=== PATIENT | female | born 1965 | race Hispanic/Latino ===

== ENCOUNTER 2020-07-10 14:19 | Inpatient (IN) | payer BC, OTHER ==
[~2020-07-10] VITALS: Ht 152.4 cm; Wt 72.6 kg
[2020-07-10 21:34] LABS: BASOPHILS % 0.2 % (0.0-1.0); EOSINOPHILS # (AUTO) 0.2 (0.0-0.4); EOSINOPHILS % 3.3 % (0.0-6.0); HEMATOCRIT 38.7 % (34.2-44.1); HEMOGLOBIN 11.6 g/dL (12.0-16.0); LYMPHOCYTES # (AUTO) 1.4 (1.0-3.2); LYMPHOCYTES % 24.8 % (18.0-39.1); MEAN CORPUSCULAR HEMOGLOBIN 24.1 pg (28-32); MEAN CORPUSCULAR VOLUME 80.5 fL (81-99); MONOCYTES # (AUTO) 0.5 (0.2-0.8); MONOCYTES % 8.1 % (4.4-11.3); NEUTROPHILS # (AUTO) 3.6 (2.1-6.9); NEUTROPHILS % 62.4 % (38.7-80.0); PLATELET COUNT 393 x10e3/uL (140-360); RED BLOOD COUNT 4.81 x10e6/uL (3.6-5.1); RED CELL DISTRIBUTION WIDTH 15.1 % (11.7-14.4)
[2020-07-10 21:42] LABS: INR 0.97; PROTHROMBIN TIME 13.5 seconds (11.9-14.5)
[2020-07-10 21:43] LABS: PARTIAL THROMBOPLASTIN TIME 32.5 seconds (23.8-35.5)
[2020-07-10 21:58] LABS: CREATINE KINASE MB 0.3 ng/mL (0-5.0)
[2020-07-10 22:00] LABS: ALBUMIN 2.8 g/dL (3.5-5.0); ALBUMIN/GLOBULIN RATIO 0.5 (0.8-2.0); ANION GAP 18.9 mmol/L (8-16); CALCIUM 9.5 mg/dL (8.4-10.2); CREATININE, SERUM 1.5 mg/dL (0.57-1.11); POTASSIUM 3.9 mmol/L (3.5-5.1)
[2020-07-10] MEDS ORDERED: DEXTROSE 50% SYRINGE 50 ML IV PRN (23:30)
[2020-07-10] MEDS ORDERED: ACETAMINOPHEN 325 MG TAB PO PRN (23:30)
[2020-07-10] MEDS ORDERED: AZITHROMYCIN 500MG/NS 250 ML 250 ML IV SCH (23:49)
[2020-07-10] MEDS ORDERED: CEFTRIAXONE SOD 2 GM/NS 100 ML 100 ML IV SCH (23:50)
[2020-07-10] MEDS ORDERED: DEXAMETHASONE SOD PHOS 10 MG/1 ML VIAL IV SCH (23:51)
[2020-07-10] MEDS ORDERED: CEFTRIAXONE SOD 2 GM in SODIUM CHLORIDE 0.9% 100 ML IV SCH (23:53)
[2020-07-11] MEDS ORDERED: BENZONATATE 100 MG CAP PO PRN (03:45)
[2020-07-11 05:12] LABS: BASOPHILS % 0.4 % (0.0-1.0); EOSINOPHILS # (AUTO) 0.2 (0.0-0.4); EOSINOPHILS % 3.2 % (0.0-6.0); HEMATOCRIT 36.1 % (34.2-44.1); HEMOGLOBIN 11.2 g/dL (12.0-16.0); LYMPHOCYTES # (AUTO) 1.1 (1.0-3.2); MEAN CORPUSCULAR HEMOGLOBIN 24.7 pg (28-32); MEAN CORPUSCULAR VOLUME 79.7 fL (81-99); MONOCYTES # (AUTO) 0.4 (0.2-0.8); MONOCYTES % 6.1 % (4.4-11.3); NEUTROPHILS # (AUTO) 5.4 (2.1-6.9); NEUTROPHILS % 74.1 % (38.7-80.0); PLATELET COUNT 511 x10e3/uL (140-360); RED BLOOD COUNT 4.53 x10e6/uL (3.6-5.1); RED CELL DISTRIBUTION WIDTH 15.1 % (11.7-14.4)
[2020-07-11 05:40] LABS: ALBUMIN 2.9 g/dL (3.5-5.0); ALBUMIN/GLOBULIN RATIO 0.6 (0.8-2.0); ANION GAP 17.9 mmol/L (8-16); CALCIUM 9.6 mg/dL (8.4-10.2); CREATININE, SERUM 1.36 mg/dL (0.57-1.11); POTASSIUM 3.9 mmol/L (3.5-5.1)
[2020-07-11] MEDS: ENOXAPARIN SOD INJ 40 MG/0.4 ML SYR SC SCH ×2 (08:45→17:00)
[2020-07-11] MEDS: ZINC SULFATE 220 MG CAP PO SCH (08:45)
[2020-07-11] MEDS: ASCORBIC ACID 500 MG TAB PO SCH ×2 (08:45→17:15)
[2020-07-11] MEDS: INSULIN REGULAR, HUMAN 100 UNIT/1 ML 3ML VIAL SQ SCH ×3 (08:49→21:00)
[2020-07-11] MEDS: INSULIN REGULAR, HUMAN 100 UNIT/1 ML 3ML VIAL SQ PRN (12:45)
[2020-07-11] MEDS ORDERED: ALBUTEROL SULFATE HFA 8GM INHALATION AEROSOL INH PRN (16:30)
[2020-07-11] MEDS: BUDESONIDE/FORMOTEROL 160/4.5MCG INHALER INH SCH (19:00)
[2020-07-11 20:00] VITALS: BP 149/71
[2020-07-11 20:30] VITALS: BP 149/71
[2020-07-11] MEDS ORDERED: CHLORTHALIDONE50 MG (22:26)
[2020-07-11] MEDS ORDERED: GLIPIZIDE10 MG PO (22:33)
[2020-07-11] MEDS ORDERED: NEURONTIN300 MG PO (22:33)
[2020-07-11] MEDS ORDERED: METOPROLOL SUCC50 MG PO (22:33)
[2020-07-11] MEDS ORDERED: FAMOTIDINE20 MG PO (22:33)
[2020-07-11] MEDS ORDERED: LISINOPRIL10 MG PO (22:33)
[2020-07-11] MEDS ORDERED: GLUCOPHAGE500 MG PO (22:33)
[2020-07-11] MEDS ORDERED: MELATONIN5 M4 PO (22:33)
[2020-07-11] MEDS ORDERED: JANUVIA50 MG PO (22:33)
[2020-07-12] VITALS (10 sets, daily range): BP systolic 132–160; BP diastolic 65–83
[2020-07-12] MEDS ORDERED: CEFTRIAXONE SOD 1 GM VIAL ONE ×2 (04:39→04:42)
[2020-07-12] MEDS ORDERED: SODIUM CHLORIDE 0.9% 50ML 100 ML ONE (04:42)
[2020-07-12] MEDS: CEFTRIAXONE SOD 2 GM in SODIUM CHLORIDE 0.9% 100 ML IV SCH (04:44)
[2020-07-12] MEDS: DEXAMETHASONE SOD PHOS 10 MG/1 ML VIAL IV SCH (05:41)
[2020-07-12] MEDS ORDERED: AZITHROMYCIN 500MG/NS 250 ML 250 ML IV SCH (06:00)
[2020-07-12] MEDS: ZINC SULFATE 220 MG CAP PO SCH (08:49)
[2020-07-12] MEDS: AZITHROMYCIN 500MG/NS 250 ML 250 ML IV SCH (08:49)
[2020-07-12] MEDS: ASCORBIC ACID 500 MG TAB PO SCH ×2 (08:49→16:54)
[2020-07-12] MEDS: BUDESONIDE/FORMOTEROL 160/4.5MCG INHALER INH SCH ×2 (08:55→19:00)
[2020-07-12] MEDS: ENOXAPARIN SOD INJ 40 MG/0.4 ML SYR SC SCH ×2 (08:55→16:54)
[2020-07-12] MEDS ORDERED: CEFTRIAXONE SOD 2 GM/NS 100 ML 100 ML IV SCH (09:00)
[2020-07-12] MEDS: INSULIN REGULAR, HUMAN 100 UNIT/1 ML 3ML VIAL SQ SCH ×4 (09:12→21:00)
[2020-07-12 10:19] LABS: BASOPHILS % 0.2 % (0.0-1.0); HEMATOCRIT 35.5 % (34.2-44.1); HEMOGLOBIN 10.9 g/dL (12.0-16.0); LYMPHOCYTES # (AUTO) 0.9 (1.0-3.2); LYMPHOCYTES % 15.9 % (18.0-39.1); MEAN CORPUSCULAR HEMOGLOBIN 24.3 pg (28-32); MEAN CORPUSCULAR HGB CONC 30.7 g/dL (31-35); MEAN CORPUSCULAR VOLUME 79.1 fL (81-99); MONOCYTES # (AUTO) 0.3 (0.2-0.8); MONOCYTES % 4.7 % (4.4-11.3); NEUTROPHILS # (AUTO) 4.3 (2.1-6.9); NEUTROPHILS % 76.9 % (38.7-80.0); PLATELET COUNT 584 x10e3/uL (140-360); RED BLOOD COUNT 4.49 x10e6/uL (3.6-5.1); RED CELL DISTRIBUTION WIDTH 14.9 % (11.7-14.4)
[2020-07-12 10:40] LABS: ALBUMIN 2.8 g/dL (3.5-5.0); ALBUMIN/GLOBULIN RATIO 0.5 (0.8-2.0); ANION GAP 16.6 mmol/L (8-16); CALCIUM 9.9 mg/dL (8.4-10.2); CREATININE, SERUM 1.22 mg/dL (0.57-1.11); POTASSIUM 4.6 mmol/L (3.5-5.1)
[2020-07-12] MEDS ORDERED: SODIUM CHLORIDE 0.9% 250ML 250 ML ONE (12:35)
[2020-07-12] MEDS: INSULIN REGULAR, HUMAN 100 UNIT/1 ML 3ML VIAL SQ PRN ×3 (13:13→22:00)
[2020-07-12] MEDS ORDERED: INSULIN GLARGINE 100 UNITS/ML VIAL SQ SCH (21:00)
[2020-07-13] VITALS (7 sets, daily range): BP systolic 133–168; BP diastolic 70–96
[2020-07-13] MEDS: DEXAMETHASONE SOD PHOS 10 MG/1 ML VIAL IV SCH (04:46)
[2020-07-13] MEDS: CEFTRIAXONE SOD 2 GM in SODIUM CHLORIDE 0.9% 100 ML IV SCH (04:46)
[2020-07-13] MEDS: AZITHROMYCIN 500MG/NS 250 ML 250 ML IV SCH (08:33)
[2020-07-13] MEDS: BUDESONIDE/FORMOTEROL 160/4.5MCG INHALER INH SCH ×2 (08:33→19:56)
[2020-07-13] MEDS: ZINC SULFATE 220 MG CAP PO SCH (08:33)
[2020-07-13] MEDS: ENOXAPARIN SOD INJ 40 MG/0.4 ML SYR SC SCH ×2 (08:33→16:24)
[2020-07-13] MEDS: ASCORBIC ACID 500 MG TAB PO SCH ×2 (08:33→16:24)
[2020-07-13] MEDS: INSULIN REGULAR, HUMAN 100 UNIT/1 ML 3ML VIAL SQ SCH ×4 (08:36→21:00)
[2020-07-13 10:04] LABS: BASOPHILS % 0.3 % (0.0-1.0); EOSINOPHILS % 0.1 % (0.0-6.0); HEMATOCRIT 38.2 % (34.2-44.1); HEMOGLOBIN 11.8 g/dL (12.0-16.0); LYMPHOCYTES # (AUTO) 1.1 (1.0-3.2); LYMPHOCYTES % 16.4 % (18.0-39.1); MEAN CORPUSCULAR HEMOGLOBIN 24.9 pg (28-32); MEAN CORPUSCULAR HGB CONC 30.9 g/dL (31-35); MEAN CORPUSCULAR VOLUME 80.8 fL (81-99); MONOCYTES # (AUTO) 0.3 (0.2-0.8); MONOCYTES % 3.7 % (4.4-11.3); NEUTROPHILS # (AUTO) 5.2 (2.1-6.9); NEUTROPHILS % 76.4 % (38.7-80.0); PLATELET COUNT 569 x10e3/uL (140-360); RED BLOOD COUNT 4.73 x10e6/uL (3.6-5.1); RED CELL DISTRIBUTION WIDTH 14.6 % (11.7-14.4)
[2020-07-13 10:08] LABS: ALBUMIN 2.9 g/dL (3.5-5.0); ALBUMIN/GLOBULIN RATIO 0.6 (0.8-2.0); ANION GAP 16.6 mmol/L (8-16); CALCIUM 9.7 mg/dL (8.4-10.2); POTASSIUM 4.6 mmol/L (3.5-5.1)
[2020-07-13] MEDS: SODIUM CHLORIDE 0.9% 1000ML 1,000 ML IV SCH ×3 (12:43→23:54)
[2020-07-13] MEDS ORDERED: ENOXAPARIN SOD INJ 40 MG/0.4 ML SYR SC ONE (16:07)
[2020-07-13] MEDS ORDERED: ASCORBIC ACID 500 MG TAB ONE (16:08)
[2020-07-13] MEDS: INSULIN REGULAR, HUMAN 100 UNIT/1 ML 3ML VIAL SQ PRN ×2 (18:34→21:20)
[2020-07-13] MEDS ORDERED: INSULIN GLARGINE 100 UNITS/ML VIAL SQ SCH (21:00)
[2020-07-14] VITALS (8 sets, daily range): BP systolic 138–152; BP diastolic 68–88
[2020-07-14] MEDS: CEFTRIAXONE SOD 2 GM in SODIUM CHLORIDE 0.9% 100 ML IV SCH (05:13)
[2020-07-14] MEDS: DEXAMETHASONE SOD PHOS 10 MG/1 ML VIAL IV SCH (05:13)
[2020-07-14 06:03] LABS: BASOPHILS % 0.1 % (0.0-1.0); EOSINOPHILS # (AUTO) 0.1 (0.0-0.4); EOSINOPHILS % 0.8 % (0.0-6.0); HEMATOCRIT 34.2 % (34.2-44.1); HEMOGLOBIN 10.6 g/dL (12.0-16.0); LYMPHOCYTES # (AUTO) 2.5 (1.0-3.2); LYMPHOCYTES % 35.4 % (18.0-39.1); MEAN CORPUSCULAR HEMOGLOBIN 24.6 pg (28-32); MEAN CORPUSCULAR VOLUME 79.4 fL (81-99); MONOCYTES # (AUTO) 0.6 (0.2-0.8); MONOCYTES % 8.1 % (4.4-11.3); NEUTROPHILS # (AUTO) 3.8 (2.1-6.9); NEUTROPHILS % 53.1 % (38.7-80.0); PLATELET COUNT 643 x10e3/uL (140-360); RED BLOOD COUNT 4.31 x10e6/uL (3.6-5.1); RED CELL DISTRIBUTION WIDTH 14.5 % (11.7-14.4)
[2020-07-14 06:28] LABS: ANION GAP 13.3 mmol/L (8-16); BLOOD UREA NITROGEN 31 mg/dL (7-26); BUN/CREATININE RATIO 34 (6-25); CARBON DIOXIDE 26 mmol/L (22-29); CHLORIDE 104 mmol/L (98-107); CREATININE, SERUM 0.91 mg/dL (0.57-1.11); EST GLOMERULAR FILTRATION RATE > 60 ML/MIN (60-); GLUCOSE 185 mg/dL (74-118); POTASSIUM 3.3 mmol/L (3.5-5.1); SODIUM 140 mmol/L (136-145)
[2020-07-14] MEDS: BUDESONIDE/FORMOTEROL 160/4.5MCG INHALER INH SCH ×2 (07:00→20:02)
[2020-07-14] MEDS: INSULIN REGULAR, HUMAN 100 UNIT/1 ML 3ML VIAL SQ SCH ×4 (07:30→20:59)
[2020-07-14] MEDS: ASCORBIC ACID 500 MG TAB PO SCH ×2 (09:14→17:15)
[2020-07-14] MEDS: ENOXAPARIN SOD INJ 40 MG/0.4 ML SYR SC SCH ×2 (09:14→17:15)
[2020-07-14] MEDS: ZINC SULFATE 220 MG CAP PO SCH (09:14)
[2020-07-14] MEDS: AZITHROMYCIN 500MG/NS 250 ML 250 ML IV SCH (09:14)
[2020-07-14] MEDS ORDERED: POTASSIUM CHLORIDE 10MEQ EA PO NR (10:30)
[2020-07-14] MEDS ORDERED: POTASSIUM CHLORIDE 20 MEQ TAB CR PO NR (10:45)
[2020-07-14] MEDS: SODIUM CHLORIDE 0.9% 1000ML 1,000 ML IV SCH (16:00)
[2020-07-14] MEDS ORDERED: INSULIN GLARGINE 100 UNITS/ML VIAL SQ SCH (21:00)
[2020-07-14] MEDS: INSULIN REGULAR, HUMAN 100 UNIT/1 ML 3ML VIAL SQ PRN (21:05)
[2020-07-15] VITALS: BP 129/81
[2020-07-15] MEDS: SODIUM CHLORIDE 0.9% 1000ML 1,000 ML IV SCH ×2 (02:00→12:00)
[2020-07-15 04:00] VITALS: BP 128/71
[2020-07-15 05:03] LABS: BASOPHILS % 0.3 % (0.0-1.0); EOSINOPHILS # (AUTO) 0.1 (0.0-0.4); EOSINOPHILS % 1.4 % (0.0-6.0); HEMATOCRIT 34.6 % (34.2-44.1); HEMOGLOBIN 10.7 g/dL (12.0-16.0); LYMPHOCYTES # (AUTO) 3.2 (1.0-3.2); MEAN CORPUSCULAR HEMOGLOBIN 24.9 pg (28-32); MEAN CORPUSCULAR HGB CONC 30.9 g/dL (31-35); MEAN CORPUSCULAR VOLUME 80.7 fL (81-99); MONOCYTES # (AUTO) 0.6 (0.2-0.8); MONOCYTES % 7.8 % (4.4-11.3); NEUTROPHILS # (AUTO) 3.5 (2.1-6.9); NEUTROPHILS % 45.4 % (38.7-80.0); PLATELET COUNT 584 x10e3/uL (140-360); RED BLOOD COUNT 4.29 x10e6/uL (3.6-5.1); RED CELL DISTRIBUTION WIDTH 14.6 % (11.7-14.4)
[2020-07-15 05:27] LABS: ALANINE AMINOTRANSFERASE 25 IU/L (0-55); ALBUMIN 2.8 g/dL (3.5-5.0); ALBUMIN/GLOBULIN RATIO 0.7 (0.8-2.0); ALKALINE PHOSPHATASE 106 IU/L (40-150); ANION GAP 14.4 mmol/L (8-16); BLOOD UREA NITROGEN 25 mg/dL (7-26); BUN/CREATININE RATIO 31 (6-25); CALCIUM 9.1 mg/dL (8.4-10.2); CARBON DIOXIDE 26 mmol/L (22-29); CHLORIDE 103 mmol/L (98-107); CREATININE, SERUM 0.81 mg/dL (0.57-1.11); EST GLOMERULAR FILTRATION RATE > 60 ML/MIN (60-); GLUCOSE 128 mg/dL (74-118); POTASSIUM 3.4 mmol/L (3.5-5.1); SODIUM 140 mmol/L (136-145)
[2020-07-15] MEDS: CEFTRIAXONE SOD 2 GM in SODIUM CHLORIDE 0.9% 100 ML IV SCH (05:37)
[2020-07-15] MEDS: DEXAMETHASONE SOD PHOS 10 MG/1 ML VIAL IV SCH (05:37)
[2020-07-15] MEDS ORDERED: ASCORBIC ACID 500 MG TAB ONE (07:38)
[2020-07-15] MEDS ORDERED: AZITHROMYCIN 500MG/NS 250 ML 250 ML ONE (07:39)
[2020-07-15] MEDS ORDERED: POTASSIUM CHLORIDE 10MEQ EA PO ONE (08:30)
[2020-07-15] MEDS: ZINC SULFATE 220 MG CAP PO SCH (09:04)
[2020-07-15] MEDS: ASCORBIC ACID 500 MG TAB PO SCH (09:04)
[2020-07-15] MEDS: AZITHROMYCIN 500MG/NS 250 ML 250 ML IV SCH (09:04)
[2020-07-15] MEDS: ENOXAPARIN SOD INJ 40 MG/0.4 ML SYR SC SCH (09:04)
[2020-07-15] MEDS: INSULIN REGULAR, HUMAN 100 UNIT/1 ML 3ML VIAL SQ SCH ×2 (09:05→12:00)
[2020-07-15 09:15] VITALS: BP 128/71
[2020-07-15 09:26] VITALS: BP 143/77
[2020-07-15] MEDS: BUDESONIDE/FORMOTEROL 160/4.5MCG INHALER INH SCH (10:05)
[2020-07-15 11:57] VITALS: BP 131/78
== END 2020-07-15 17:33 | disposition home or self-care (01) | DRG 177 ==
LOC: ER 17:44 → ERHOLD 23:32 → IMCU 07-11 19:17
PROVIDERS: ADMIT Internal Medicine; ATTEND Internal Medicine
PROC: 3E0333Z Introduction of Anti-inflammatory into Peripheral Vein, Percutaneous Approach (ICD-10-PCS; principal; 2020-07-10)
DX: U07.1 COVID-19 (principal); J12.82 Pneumonia due to coronavirus disease 2019; J96.01 Acute respiratory failure with hypoxia; N17.9 Acute kidney failure, unspecified; E11.22 Type 2 diabetes mellitus with diabetic chronic kidney disease; N18.30 Chronic kidney disease, stage 3 unspecified; I12.9 Hypertensive chronic kidney disease with stage 1 through stage 4 chronic kidney disease, or unspecified chronic kidney disease; E03.9 Hypothyroidism, unspecified; Z90.49 Acquired absence of other specified parts of digestive tract; Z88.2 Allergy status to sulfonamides; Z88.8 Allergy status to other drugs, medicaments and biological substances; Z87.891 Personal history of nicotine dependence; J45.40 Moderate persistent asthma, uncomplicated; Z79.84 Long term (current) use of oral hypoglycemic drugs
CPT/HCPCS: 36415; 71045; 80048; 80053; 82550; 82553; 82948; 83036; 83880; 84484; 85025; 85610; 85730; 87040; 87070; 87205; 93005; 96372; 99285; J0456; J0696; J1100; J1650; J1815; J1817; J7030; J7050; U0002